=== PATIENT | male | born 1990 | race Two or more races ===

== ENCOUNTER 2016-11-17 07:01 | Emergency (ER) | payer MEDICAID ==
[~2016-11-17] VITALS: Ht 175.3 cm; Wt 71.0 kg
[2016-11-17] MEDS ORDERED: FAMOTIDINE 20 MG TABLET PO ONE (07:30)
[2016-11-17] MEDS ORDERED: PROMETHAZINE 25MG TABLET PO ONE (07:30)
[2016-11-17] MEDS ORDERED: FAMOTIDINE 20 MG TABLET ONE (07:36)
[2016-11-17 08:04] VITALS: BP 129/84
== END 2016-11-17 09:01 | disposition home or self-care (01) ==
LOC: ED 08:20
DX: F10.10 Alcohol abuse, uncomplicated (principal); R10.84 Generalized abdominal pain; F32.1 Major depressive disorder, single episode, moderate
CPT/HCPCS: 99283; Q0169

== ENCOUNTER 2016-12-14 06:50 | Emergency (ER) | payer MEDICAID ==
[~2016-12-14] VITALS: Ht 175.3 cm; Wt 67.0 kg
[2016-12-14] MEDS ORDERED: BACITRACIN ZINC OINT 500U/GM, 0.9 GM ONE ×2 (08:07→10:53)
[2016-12-14 11:37] VITALS: BP 117/82
== END 2016-12-14 12:24 | disposition home or self-care (01) ==
LOC: ED 07:28
DX: S00.81XA Abrasion of other part of head, initial encounter (principal); S00.212A Abrasion of left eyelid and periocular area, initial encounter; F10.229 Alcohol dependence with intoxication, unspecified; W18.30XA Fall on same level, unspecified, initial encounter; Y93.89 Activity, other specified; Y99.8 Other external cause status; Y92.410 Unspecified street and highway as the place of occurrence of the external cause
CPT/HCPCS: 99283

== ENCOUNTER 2019-01-28 20:14 | Emergency (ER) | payer SELFPAY ==
[2019-01-28 20:19] VITALS: BP 112/66
== END 2019-01-28 20:28 | disposition left against medical advice (07) ==
LOC: ED 20:22
DX: Z53.21 Procedure and treatment not carried out due to patient leaving prior to being seen by health care provider (principal)